=== PATIENT | male | born 1970 | race Caucasian/White ===

== ENCOUNTER 2016-08-14 11:21 | Inpatient (IN) | payer OTHER ==
--- NOTE | ~2016-08-14 | HP ---
History And Physical [facility] [address] [place]. [address] NAME: HOANG LYNN : 72 STATUS : ADM IN PAT#: [id number] AGE: 46 ADM/REG DATE : 08/14/16 MR#: [id number] REPORT SERV DATE: 08/14/16 DICTATED BY: CINDY CHEEK DATE: 08/14/16 REPORT STATUS : Draft TRANSCRIBED BY: MODL DATE: 08/14/16 DATE OF ADMISSION: 08/14/2016 CHIEF COMPLAINT: Hypertensive emergency, uncontrolled. HISTORY OF PRESENT ILLNESS: This is a very pleasant 46-year-old gentleman, patient of Dr. Yousif, Cardiology with a past medical history significant for hypertension, that has been diagnosed at age 29 as well as prior history of coronary artery disease, his primary care provider is Dr. Toribio, presenting today to [facility] due to increase of his blood pressure. Actually, the patient took his blood pressure this morning before he took his medications and was extremely elevated. On arrival in the emergency room, his pressure was 263/121. As a result, he has been presenting to [facility]. He did not experience any chest pain or shortness of breath. No PND. No orthopnea. No dizziness or lightheadedness. No nausea or vomiting. No headaches. No diplopia. No other complaints. He does have a lot of nasal congestion, and according to the patient, she is using Afrin regularly. He has been seen by Dr. Yousif, for his high blood pressure since 29. He has an extensive workup in the past showing a 2D echo in 2016 with an ejection fraction of 60%. Renal duplex ultrasound which has been negative. CO screen has been negative. The patient has been evaluated in the emergency room. After speaking with Dr. Desai as well as CPOU unit, the patient has been admitted to Hospitalist Service for further evaluation and treatment, and possible stress test in the morning. PAST MEDICAL HISTORY: Significant for hypertension. PAST SURGICAL HISTORY: He has vasectomy and history of vasectomy. PAST FAMILY HISTORY: Significant for coronary artery disease. PAST SOCIAL HISTORY: The patient denies tobacco, alcohol, or IV drugs. ALLERGIES: HE DOES NOT HAVE ANY DRUG ALLERGIES. MEDICATIONS: At home include vitamin D3, coenzyme Q, Apresoline, losartan, red yeast, omega- 3 fatty acids, Afrin, resveratrol and Diovan, hydrochlorothiazide. REVIEW OF SYSTEMS: A 14-point review of systems has been obtained and pertinent positive has been listed into the history of present illness. Otherwise, negative except those underlying above. PHYSICAL EXAMINATION: VITAL SIGNS: Currently, the patient is afebrile. Blood pressure has been decreased to 130/82 after treatment in the emergency room, heart rate was 69, respiratory rate 12, saturating 100% on room air. GENERAL: He is extremely pleasant well-developed, well-nourished gentleman, in no acute distress. Pleasant and cooperative. NEURO: He is alert and oriented x3. Nonfocal. He follows all his commands appropriately History And Physical [address] [address] NAME: HOANG LYNN : 72 STATUS : ADM IN [facility]#: [id number] AGE: 46 ADM/REG DATE : 08/14/16 MR#: [id number] REPORT SERV DATE: 08/14/16 DICTATED BY: CINDY CHEEK DATE: 08/14/16 REPORT STATUS : Draft TRANSCRIBED BY: PILAR DATE: 08/14/16 HEENT: Shows pupils equal, round, reactive to light. Extraocular movements intact. NECK: No JVD. No lymphadenopathy. No thyromegaly appreciated. CHEST: Eval shows bilateral air entry. Clear anteroposterior. No wheezes, crackles, or rhonchi appreciated. CARDIOVASCULAR: He is regular rate and rhythm. S1, S2 positive. No S3, no S4. No murmurs, rubs, or gallops appreciated. ABDOMEN: Soft with positive bowel sounds. Nontender. No guarding. No rebound. EXTREMITIES: No clubbing, cyanosis, or edema. NEUROLOGIC: The patient is alert and oriented x3. He is nonfocal. He follows all his commands appropriately. LABORATORY DATA: Labs from today include sodium 141, potassium 3.6, chloride 105, CO2 of 27, BUN 12, creatinine 0.98, glucose is 87, calcium 9.1, magnesium 2.1. Troponin 0.29. White count is 5.8, hemoglobin 15.8, hematocrit 47.5, platelets are 221. INR is 1. His EKG shows normal sinus rhythm and LVH. No acute ST-segment changes and chest x-ray portable performed in the emergency room shows negative chest x-ray. ASSESSMENT AND PLAN: This is a very pleasant 46-year-old gentleman with: 1. Hypertensive emergency in a patient with uncontrolled hypertension. 2. Positive troponins likely secondary to stress. The patient is going to be admitted to Hospitalist Service to the monitored bed. We are going to continue his beta karl, continue his Diovan and hydrochlorothiazide. Increase his hydralazine. Provide p.r.n. hydralazine as needed. Rule him out for myocardial infarction by serial cardiac enzymes, serial EKG, and consult Dr. Desai, Cardiology for further recommendation. 3. Positive troponin I likely secondary to demand, we are going to control his blood pressure, rule out for myocardial infarction by serial cardiac enzymes, serial EKGs. Place him on an aspirin and order a stress test in the morning per Dr. Desai's recommendation. 4. We will provide reasonable pain and nausea control as well as GI and DVT prophylaxis that has been discussed extensively with the patient as well as the patient's family. All the questions have been answered in full. Further workup and recommendation pending above. It is also to note that the patient is going to be followed up by Hospitalist Service. CF/MODL Cindy Cheek M.D. / [id number] CC: Shanell Hines MD
--- NOTE | ~2016-08-14 | CN ---
Consultation Report [facility] [address] [place]. [address] NAME: HOANG LYNN : 72 STATUS : ADM IN [facility]#: [id number] AGE: 46 ADM/REG DATE : 08/14/16 MR#: [id number] REPORT SERV DATE: 08/15/16 DICTATED BY: ELIEL DESAI DATE: 08/14/16 REPORT STATUS : Draft TRANSCRIBED BY: MODL DATE: 08/14/16 CARDIOLOGY CONSULTATION NOTE DATE OF CONSULTATION: 08/14/2016 REASON FOR CONSULTATION: Uncontrolled hypertension and elevated troponin I. HISTORY OF PRESENT ILLNESS: Mr. Lynn is a pleasant 46-year-old man with a long-standing history of uncontrolled hypertension. The patient reports that his blood pressure has been uncontrolled since his late 20s. The patient is followed by Dr. Yousif, for assistance in blood pressure management. The patient reports that recently his blood pressure has been significantly fluctuating. He took his blood pressure at home prior to admission today and found to be approximately 230/120 mmHg. The patient therefore presented to [facility], "because I finally want to get this under control once and for all." The patient's blood pressure on admission was found to be 263/121 mmHg. The patient reports no associated symptoms, however. He specifically denies headache, chest pain, dyspnea, palpitations, dizziness, or syncope. He denies visual changes. REVIEW OF SYSTEMS: This is positive for chronic nasal congestion. The patient uses Afrin nasal spray four times a day chronically. He is unable to stop this due to rebound congestion. Review of systems is also positive for snoring and possible witnessed apneic episodes per the patient's significant other. PAST MEDICAL HISTORY: Hypertension and otherwise noncontributory. PAST SURGICAL HISTORY: Negative. FAMILY HISTORY: The patient has no significant family history of early coronary heart disease or sudden cardiac . He reports that other family members have had difficult-to control hypertension. SOCIAL HISTORY: The patient has no significant history of tobacco, alcohol, or drug use. He is . ALLERGIES: THE PATIENT REPORTS NO KNOWN MEDICATION ALLERGIES. HOME MEDICATIONS: 1. Vitamin D. 2. Coenzyme Q10. 3. Hydralazine 25 mg twice daily. 4. Metoprolol tartrate 50 mg p.o. once daily. 5. Red yeast rice 1 capsule daily. 6. [place]-3 supplement. Consultation Report [facility] [address] [place]. [address] NAME: HOANG LYNN : 72 STATUS : ADM IN PAT#: [id number] AGE: 46 ADM/REG DATE : 08/14/16 MR#: [id number] REPORT SERV DATE: 08/15/16 DICTATED BY: ELIEL DESAI DATE: 08/14/16 REPORT STATUS : Draft TRANSCRIBED BY: MODL DATE: 08/14/16 7. Afrin nasal spray 2-3 sprays 4 times daily. 8. Resveratrol supplement one dose at bedtime. 9. Valsartan hydrochlorothiazide 320/12.5 mg daily. REVIEW OF SYSTEMS: A complete 12-system review was performed. This is otherwise negative except as noted above. PHYSICAL EXAMINATION: VITAL SIGNS: Temperature is 98.6 degrees Fahrenheit, blood pressure is currently 179/99 mmHg, respirations 16, oxygen saturation is 95% on room air, heart rate is 62 beats per minute and regular. CONSTITUTIONAL/GENERAL: The patient is a borderline obese white man, in no acute distress. EYES: PERRL, EOMI, clear conjunctiva. HEAD/MNT: NCAT with moist mucous membranes and grossly normal hard and soft palate. NECK: Supple with no obvious thyromegaly or lymphadenopathy CARDIOVASCULAR: There is a regular rhythm with a normal S1 and a physiologically split second heart sound. A soft S4 gallop is noted. The exam is otherwise normal with normal jugular venous pressure. PULMONARY: Clear to auscultation bilaterally, no wheezing, rales or rhonchi noted. No dullness to percussion. Non-labored. ABDOMINAL: Soft, non-tender, non-distended with no hepatosplenomegaly noted. EXTREMITIES: No clubbing, cyanosis or edema. MUSCULOSKELETAL: Grossly normal strength and range of motion in all extremities INTEGUMENTARY: Skin appears intact with no bruises, wounds or active lesions noted NEURO/PSYC: Alert and oriented x3, with no dysarthria, facial droop or lateralizing weakness noted. LABORATORY DATA: White blood cell count is 5.8, hemoglobin 15.8, hematocrit 47, platelets 221. Chemistry shows a sodium of 141, potassium 3.6, chloride is 105, CO2 is 27, BUN 12, creatinine 0.98, glucose 87, calcium 9.1, magnesium 2.1. The patient's troponin I is mildly elevated at 0.29 with a second troponin I of 0.25. 12-LEAD EKG: The 12-lead EKG shows normal sinus rhythm with nonspecific ST/T-wave abnormalities in the lateral leads and left axis deviation. CHEST X-RAY: This shows a tortuous thoracic aorta with no other significant abnormality. ASSESSMENT AND PLAN: 1. Uncontrolled hypertension: I would make several recommendations regarding the patient's uncontrolled hypertension. a. We will discontinue metoprolol-this is a b.i.d. medication which the patient apparently is only taking once daily. In place, we will start carvedilol 12.5 mg p.o. twice daily. b. The patient is taking hydralazine q.i.d. medication twice a day. This Consultation Report [address] [place]. [address] NAME: HOANG LYNN : 72 STATUS : ADM IN PAT#: [id number] AGE: 46 ADM/REG DATE : 08/14/16 MR#: [id number] REPORT SERV DATE: 08/15/16 DICTATED BY: ELIEL DESAI DATE: 08/14/16 REPORT STATUS : Draft TRANSCRIBED BY: PILAR DATE: 08/14/16 will be discontinued and use as needed provided other medication changes are not effective. c. Valsartan hydrochlorothiazide will be increased to 320/25 mg daily. d. The patient will be titrated off oxymetazoline as tolerated. We will start Flonase to moderate symptoms of rebound nasal congestion. e. A nocturnal pulse oximetry study will be obtained to screen for obstructive sleep apnea. 2. Elevated cardiac biomarkers: This is demand ischemia from subendocardial ischemia likely from uncontrolled hypertension. However, the patient does have the obvious cardiac risk factor of hypertension in addition to male gender. I would recommend risk stratification with a stress test at some point. It will be impossible to perform a stress until the patient's blood pressure is adequately controlled. He does have an interpretable EKG, however. I would recommend that once the patient's blood pressure is controlled to at least less than 150/90 mmHg, then a treadmill stress test be performed. I do not feel the patient's mildly elevated troponin is an absolute contraindication to treadmill stress testing, particularly given the complete lack of cardiovascular symptoms. The Cardiology Service will continue to follow the patient during this admission. JCH/MODL Eliel Desai MD / [id number] CC: Shanell Hines MD
--- NOTE | ~2016-08-14 | DS ---
Discharge Summary [facility] [address] [place]. [address] NAME: HOANG LYNN : 72 STATUS : DIS IN PAT#: [id number] AGE: 46 ADM/REG DATE : 08/14/16 MR#: [id number] REPORT SERV DATE: 08/16/16 DICTATED BY: DATE: REPORT STATUS : Draft TRANSCRIBED BY: MODL DATE: 08/15/16 ADMISSION DATE: 08/14/2016 DISCHARGE DATE: 08/15/2016 The patient was admitted to the [facility] Hospitalist Service. ATTENDING DOCTOR: Dr. Huy Petersen. CONSULTANTS: Included Dr. Rahul Yousif of Cardiology. DISCHARGE DIAGNOSES: 1. Hypertensive urgency - no evidence of emergency, suspect related to recent aspirin use and possibly suboptimal medication. 2. Demand ischemia due to uncontrolled hypertension. 3. Allergic rhinitis with rebound congestion upon Afrin discontinuation. 4. Possible sleep apnea - consider referral for outpatient sleep evaluation. IMAGIN. Portable chest x-ray 08/14/2016, tortuous aorta, otherwise negative. 2. Echocardiogram 08/15/2016, normal left ventricular systolic function with EF 60%. Normal right ventricular chamber size and systolic function. No evidence of significant valvular regurgitation or stenosis. No significant change from 08/24/2015. 3. Portable chest x-ray 08/15/2016, no evidence of acute abnormality. Screening nocturnal pulse oximetry was done this admission, but not yet read at the time of discharge. PERTINENT LABS: CBC was normal. INR was normal. Serum drug screen was negative. LDH 228. Troponin values between 0.22 and 0.29. TSH 1.4, free T4 of 1.26. Creatinine values were normal. Ammonia 12, hemoglobin A1c 5.2. Total cholesterol 146, HDL 40, LDL 88, triglycerides 90. BRIEF HISTORY: For full details, please see the previously dictated history of present illness by Dr. Cindy Zacarias. This is a 46-year-old white male who sees Dr. Yousif as an outpatient. He has a past medical history significant for hypertension diagnosed at age 29. He reports that blood pressure since then has been suboptimally controlled, particularly difficult to control over the past year or so. The patient took his home blood pressure medication prior to admission and found it to be 230/120; in the ER, it was 263/120. The patient had no associated symptoms with that, but was admitted to the Hospitalist Service for hypertensive urgency. Of note, he has been utilizing Afrin over the past several years for allergic rhinitis symptoms despite being told that this is a vasoconstrictor and he should not use this. HOSPITAL COURSE: The patient was admitted to the hospital and Cardiology consultation was obtained. Dr. Shravan Desai saw the patient and made some recommendations for medication changes. Specifically, his home dose of metoprolol was discontinued and he was placed on carvedilol instead. His hydralazine dosing was changed from 25 mg twice a day to 50 mg Discharge Summary [address] [place]. [address] NAME: HOANG LYNN : 72 STATUS : DIS IN PAT#: [id number] AGE: 46 ADM/REG DATE : 08/14/16 MR#: [id number] REPORT SERV DATE: 08/16/16 DICTATED BY: DATE: REPORT STATUS : Draft TRANSCRIBED BY: MODL DATE: 08/15/16 three times a day. He also was continued on valsartan/hydrochlorothiazide. Initially in the hospital, the dose of valsartan/HCTZ was increased from 320/12.5 mg to 320/25 mg. The day after admission, the patient's systolic blood pressure has been in the 120-130 range. This was felt potentially to represent excessively tight control in a patient who has been uncontrolled for the majority of the past several years. His hydrochlorothiazide was decreased back to his home dose for discharge. Cardiology also recommended obtaining a screening nocturnal pulse oximetry which was done, but the patient never achieved any reasonable quality of sleep during the admission and the results had not been dictated at the time of discharge. They also recommended echocardiogram, which was done and was normal. The patient was unable to be stress tested this admission because of uncontrolled blood pressure, but the elevated troponins were felt to be demand-related ischemia and not a true cardiovascular event. The patient had many questions about evaluation for secondary hypertension. He does not believe this workup has been done in the outpatient setting in the past, although his [employer]ivist [employer] foundation felt that it may have been. He is advised to follow up with Dr. Yousif or his nurse practitioner within the next two weeks to further work through some of these questions in the outpatient setting. DISPOSITION: The patient is discharged in the care of his spouse with no specific activity restrictions. He should adhere to a low-sodium diet. He will follow up with Dr. Yousif or nurse practitioner within two weeks and is instructed to keep a blood pressure log checking twice a day - once before breakfast and once before supper, and to bring that log to the followup appointment. He should also notify Dr. Yousif's office of any systolic blood pressure reading greater than or equal to 180 or diastolic blood pressure reading greater than or equal to 110. DISCHARGE MEDICATIONS: 1. Carvedilol 12.5 mg p.o. twice a day. 2. Vitamin D3, 1000 units p.o. at bedtime. 3. Coenzyme Q10, 10 mg p.o. at bedtime. 4. Fluticasone nasal spray two sprays in each nostril twice a day. 5. [place]-3 fatty acid 300 mg p.o. at bedtime. 6. Apresoline 50 mg p.o. q.8 hours. 7. Valsartan/HCTZ 320/12.5 mg p.o. daily. 8. Red yeast rice one tablet p.o. at bedtime. 9. Resveratrol one dose p.o. at bedtime. Thirty five minutes was spent in completion of the discharge and discussion of discharge plan with the patient and Cardiology on the date of discharge. DICTATED BY: Shanell Hines/PILAR Discharge Summary [address] [address] NAME: HOANG LYNN : 72 STATUS : DIS IN PAT#: [id number] AGE: 46 ADM/REG DATE : 08/14/16 MR#: [id number] REPORT SERV DATE: 08/16/16 DICTATED BY: DATE: REPORT STATUS : Draft TRANSCRIBED BY: PILAR DATE: 08/15/16 Huy Petersen M.D. / [id number] CC: Shanell Hines MD William Oellerich, M.D., Ph.D, [place].
--- NOTE | ~2016-08-14 | PUL ---
[address] [address] NAME: HOANG LYNN : 72 STATUS : DIS IN PAT#: [id number] AGE: 46 ADM/REG DATE : 08/14/16 MR#: [id number] REPORT SERV DATE: 08/18/16 DICTATED BY: LUCY GUSMAN DATE: 08/18/16 REPORT STATUS : Draft TRANSCRIBED BY: MODL DATE: 08/18/16 PULMONARY FUNCTION TEST Total valid sampling time was 6 hours, 2 minutes and 15 seconds. Saturations were less than 88% for 0 seconds. INTERPRETATION: Normal oximetry report while on room air. RAPHAEL/PILAR Lucy Gusman M.D. / [id number] CC: Shanell Hines MD
[2016-08-14 11:04] LABS: BASOPHILS 0.2 %; BASOPHILS ABSOLUTE 0.01 10/3/uL (0.0-0.16); EOSINOPHILS 0.5 %; EOSINOPHILS ABSOLUTE 0.03 10/3/uL (0.0-0.53); ER CBC TAT 0 Hrs 08 Mins; HEMATOCRIT 46.5 % (40.0-51.0); HEMOGLOBIN 15.8 g/dL (13.6-17.8); IMMATURE GRANULOCYTES 0.2 %; IMMATURE GRANULOCYTES ABSOLUTE 0.01 10/3/uL (0.0-0.11); LYMPHOCYTES 14.5 %; LYMPHOCYTES ABSOLUTE 0.84 10/3/uL (0.67-4.30); MEAN CORPUSCULAR HEMOGLOB 29.7 pg (26.0-34.0); MEAN CORPUSCULAR VOLUME 87.4 fL (80-100); MEAN PLATELET VOLUME 9.8 fL (9.2-13.0); MONOCYTES 4.8 %; MONOCYTES ABSOLUTE 0.28 10/3/uL (0.21-1.20); NEUTROPHILS 79.8 %; NEUTROPHILS ABSOLUTE 4.62 10/3/uL (2.02-8.40); PLATELET COUNT 221 10/3/uL (150-400); RBC DISTRIBUTION WIDTH 13.8 % (12.0-16.0); RED CELL COUNT 5.32 10/6/uL (4.7-6.1); WHITE BLOOD CELLS 5.8 10/3/uL (4.5-10.5)
[2016-08-14 11:05] LABS: MANUAL DIFF NO %
[2016-08-14 11:12] LABS: PARTIAL THROMBO TIME 25.9 SEC (22.5-37.2); PROTIME (NOT ORD) 13.1 SEC (12.0-14.5)
[2016-08-14 11:22] LABS: BUN (BLOOD UREA NITROGEN) 12 MG/DL (6-23); CALCIUM, SERUM 9.1 MG/DL (8.5-10.4); CHEST PAIN PROFILE TAT 0 Hrs 26 Mins; CHLORIDE, SERUM 105 MMOL/L (96-112); CO2 (CARBON DIOXIDE) 27 MMOL/L (24-34); CREATININE 0.98 MG/DL (0.70-1.30); GFR AFRICAN AMERICAN 107 ML/MIN (>=60); GFR NON AFRICAN AMERICAN 93 ML/MIN (>=60); GLUCOSE, SERUM 87 MG/DL (60-99); POTASSIUM, SERUM 3.6 MMOL/L (3.5-5.3); SODIUM, SERUM 141 MMOL/L (135-148); TROPONIN I 0.29 NG/ML (<0.05)
[2016-08-14] MEDS ORDERED: APRES25 PO (11:46)
[2016-08-14] MEDS ORDERED: DIOVAN HC2 PO (11:47)
[2016-08-14] MEDS ORDERED: LOP50 PO (11:48)
[2016-08-14] MEDS ORDERED: AFRIN15 NAS (11:49)
[2016-08-14] MEDS ORDERED: FISH OIL300 MG PO (11:50)
[2016-08-14] MEDS ORDERED: VITAMIN D31000 UNIT PO (11:50)
[2016-08-14] MEDS ORDERED: COQ-1010 MG PO (11:51)
[2016-08-14] MEDS ORDERED: RED YEAS1 PO (11:51)
[2016-08-14] MEDS ORDERED: RESERVATROL PO (11:52)
[2016-08-14 18:03] LABS: ACETAMINOPHEN LEVEL (TYLENOL) < 2.0 MCG/ML (10.0-20.0); FREE T4 1.26 NG/DL (0.76-1.46); PHOSPHORUS, SERUM 2.6 MG/DL (2.5-4.5)
[2016-08-14 18:32] LABS: ALCOHOL < 10 MG/DL (0)
[2016-08-14 20:01] LABS: CK-MB 4.8 NG/ML; CPK 311 U/L (0-200); TROPONIN I 0.25 NG/ML (<0.05)
[2016-08-14 22:10] LABS: GLYCOHEMOGLOBIN (HbA1c) 5.2 % (4.7-6.1)
[2016-08-15 03:39] LABS: BASOPHILS 0.3 %; BASOPHILS ABSOLUTE 0.02 10/3/uL (0.0-0.16); EOSINOPHILS 2.1 %; EOSINOPHILS ABSOLUTE 0.12 10/3/uL (0.0-0.53); HEMATOCRIT 42.4 % (40.0-51.0); HEMOGLOBIN 14.5 g/dL (13.6-17.8); LYMPHOCYTES ABSOLUTE 1.55 10/3/uL (0.67-4.30); MANUAL DIFF NO %; MEAN CORPUS HGB CONC 34.2 g/dL (32.0-36.0); MEAN CORPUSCULAR HEMOGLOB 29.9 pg (26.0-34.0); MEAN CORPUSCULAR VOLUME 87.4 fL (80-100); MONOCYTES 5.1 %; MONOCYTES ABSOLUTE 0.29 10/3/uL (0.21-1.20); NEUTROPHILS 65.5 %; NEUTROPHILS ABSOLUTE 3.76 10/3/uL (2.02-8.40); PLATELET COUNT 206 10/3/uL (150-400); RED CELL COUNT 4.85 10/6/uL (4.7-6.1); WHITE BLOOD CELLS 5.7 10/3/uL (4.5-10.5)
[2016-08-15 03:59] LABS: A/G RATIO 1.4 (0.7-1.9); ALBUMIN 3.7 G/DL (3.5-5.0); ALKALINE PHOSPHATASE 54 U/L (45-117); BUN (BLOOD UREA NITROGEN) 10 MG/DL (6-23); CHLORIDE, SERUM 105 MMOL/L (96-112); CHOL/HDL RATIO(NOT ORDER) 3.7 (0-5); CHOLESTEROL 146 MG/DL (< 200); CO2 (CARBON DIOXIDE) 30 MMOL/L (24-34); CPK 241 U/L (0-200); CREATININE 0.97 MG/DL (0.70-1.30); GFR AFRICAN AMERICAN 109 ML/MIN (>=60); GFR NON AFRICAN AMERICAN 94 ML/MIN (>=60); GLOBULIN 2.7 G/DL (2.5-4.1); GLUCOSE, SERUM 83 MG/DL (60-99); HDL CHOLESTEROL 40 MG/DL (> 39); LDL CHOLESTEROL 88 MG/DL (< 130); NON-HDL CHOLESTEROL 106 MG/DL (< 160); POTASSIUM, SERUM 3.5 MMOL/L (3.5-5.3); SGOT(AST) 28 U/L (5-40); SGPT(ALT) 37 U/L (5-65); SODIUM, SERUM 141 MMOL/L (135-148); TOTAL BILIRUBIN 0.7 MG/DL (0-1.2); TOTAL PROTEIN 6.4 G/DL (6.0-8.5); TRIGLYCERIDE 90 MG/DL (< 150)
[2016-08-15 04:00] LABS: CK-MB 4.2 NG/ML; TROPONIN I 0.23 NG/ML (<0.05)
[2016-08-15 12:40] LABS: CPK 248 U/L (0-200)
[2016-08-15 12:41] LABS: CK-MB 4.7 NG/ML; TROPONIN I 0.24 NG/ML (<0.05)
[2016-08-15] MEDS ORDERED: COREG12 PO (13:37)
[2016-08-15] MEDS ORDERED: APRES50 PO (13:38)
[2016-08-15] MEDS ORDERED: FLONASE NAS (13:39)
== END 2016-08-15 14:57 | disposition home or self-care (01) | DRG 305 ==
LOC: ER 11:21 → 7NO 15:53
PROVIDERS: Hospitalist; Internal Medicine
DX: I16.0 Hypertensive urgency (principal); I24.8 Other forms of acute ischemic heart disease; I25.10 Atherosclerotic heart disease of native coronary artery without angina pectoris; J30.9 Allergic rhinitis, unspecified; I10 Essential (primary) hypertension; G47.30 Sleep apnea, unspecified
CPT/HCPCS: 71010; 80048; 80053; 80061; 80307; 82140; 82550; 82553; 83036; 83615; 83735; 84100; 84439; 84443; 84484; 85025; 85610; 85730; 93005; 93306; 94762; 96374; 99285; A9270-GY